=== PATIENT | male | born 1980 | race Caucasian/White ===

== ENCOUNTER 2020-12-31 12:37 | Emergency (ER) | payer SELFPAY ==
[~2020-12-31] VITALS: Ht 182.9 cm; Wt 95.3 kg
[2020-12-31 12:37] VITALS: BP_SYST 131
[2020-12-31] MEDS ORDERED: ONDANSETRON 4 MG ODT TAB PO ONE (13:15)
[2020-12-31 13:30] VITALS: BP_SYST 131
== END 2020-12-31 13:30 ==
LOC: SED 12:37
DX: Z02.89 Encounter for other administrative examinations (principal); D49.6 Neoplasm of unspecified behavior of brain; F17.290 Nicotine dependence, other tobacco product, uncomplicated
CPT/HCPCS: 99283; Q0162